=== PATIENT | female | born 1975 | race Asian ===

== ENCOUNTER → 2023-10-16 08:10 | Outpatient (REF) | payer BC, SELFPAY | LOC: RAD 08:10 | PROVIDERS: ATTENDING PHYSICIAN Surgery; FAMILY PHYSICIAN Student in an Organized Health Care Education/Training Program | DX: C50.412 Malignant neoplasm of upper-outer quadrant of left female breast (principal) | CPT/HCPCS: 71260; 74177; 78306; A9503; Q9967 ==

== ENCOUNTER → 2024-01-21 09:18 | Outpatient (REF) | payer BC, SELFPAY | LOC: RCS 09:18 | PROVIDERS: ATTENDING PHYSICIAN Nurse Practitioner Adult Health; FAMILY PHYSICIAN Student in an Organized Health Care Education/Training Program | DX: C50.912 Malignant neoplasm of unspecified site of left female breast (principal) | CPT/HCPCS: 93306 ==

== ENCOUNTER 2024-01-22 06:06 | Day surgery (SDC) | payer BC, SELFPAY ==
[2024-01-22 07:02] VITALS: BMI 28.2
[2024-01-22 07:13] VITALS: BMI 28.2
[2024-01-22 07:17] VITALS: BP 138/83
[2024-01-22] MEDS: NSS 1000 IV (07:18)
--- NOTE | 2024-01-22 07:40 | PTCARENOTE ---
OR team told to hang Normosol after NSS bolus infuses. Normosol sent to OR with patient.
[2024-01-22 08:34] VITALS: BP 119/52
[2024-01-22 08:45] VITALS: BP 112/79
[2024-01-22 09:00] VITALS: BP 93/59
[2024-01-22 09:10] VITALS: BP 122/88
== END 2024-01-22 09:30 | disposition home or self-care (01) ==
LOC: SDS 06:06
PROVIDERS: ATTENDING PHYSICIAN Surgery
DX: C50.912 Malignant neoplasm of unspecified site of left female breast (principal)
CPT/HCPCS: 36571; 71045; 76000; C1788

== ENCOUNTER → 2024-01-25 16:23 | Outpatient (REF) | payer BC, SELFPAY ==
[2024-01-25 15:55] LABS: % Basophils 0.5 % (0-2); % Eosinophils 1.1 % (0-6); % Immature Granulocytes 0.2 % (0-0.5); % Lymphocytes 26.3 % (20.5-51.1); % Neutrophils 64.9 % (42.2-75.2); Absolute Eosinophils 0.1 10^3/uL (0-0.7); Absolute Lymphocytes 1.7 10^3/uL (1.2-3.4); Absolute Monocytes 0.4 10^3/uL (0.1-0.6); Absolute Neutrophils 4.1 10^3/uL (1.4-6.5); Hematocrit 36.9 % (37.0-47.0); Hemoglobin 12.8 g/dL (12.0-16.0); Mean Corp Hgb Conc. 34.7 g/dL (33.0-37.0); Mean Corpuscular Hgb 32.6 pg (27.0-31.0); Mean Corpuscular Volume 93.9 fL (81.0-99.0); Mean Platelet Volume 9.2 fL (7.4-10.4); Nucleated Red Blood Cells % 0 %; Platelet Count 285 10^3/uL (130-400); Red Blood Cell Count 3.93 10^6/uL (4.20-5.40); Red Cell Dist. Width 11.9 % (11.5-14.5); White Blood Cell Count 6.3 10^3/uL (4.8-10.8)
[2024-01-25 16:07] LABS: ALT (SGPT) 15 U/L (0-35); AST (SGOT) 21 U/L (14-36); Albumin 4.2 g/dl (3.5-5.0); Alkaline Phosphatase 61 U/L (38-126); Blood Urea Nitrogen 14 mg/dl (7-17); Calcium 8.8 mg/dl (8.4-10.2); Carbon Dioxide 28 mmol/L (22-30); Chloride 101 mmol/L (98-107); Glucose 93 mg/dl (70-99); Potassium 3.8 mmol/L (3.5-5.1); Sodium 136 mmol/L (135-145); Total Bilirubin 0.4 mg/dl (0.2-1.3); Total Protein 7.2 g/dl (6.3-8.2); eGFR > 60.00
== END ==
LOC: OIDL 16:23
PROVIDERS: ATTENDING PHYSICIAN Internal Medicine Hematology & Oncology
DX: C50.912 Malignant neoplasm of unspecified site of left female breast (principal)
CPT/HCPCS: 80053; 85025

== ENCOUNTER → 2024-02-10 08:27 | Outpatient (REF) | payer BC, SELFPAY ==
[2024-02-10 08:49] LABS: % Basophils 0.4 % (0-2); % Eosinophils 1.8 % (0-6); % Immature Granulocytes 0.2 % (0-0.5); % Monocytes 9.9 % (1.7-9.3); % Neutrophils 64.7 % (42.2-75.2); Absolute Eosinophils 0.1 10^3/uL (0-0.7); Absolute Lymphocytes 1.3 10^3/uL (1.2-3.4); Absolute Monocytes 0.5 10^3/uL (0.1-0.6); Absolute Neutrophils 3.5 10^3/uL (1.4-6.5); Hematocrit 40.9 % (37.0-47.0); Mean Corp Hgb Conc. 34.2 g/dL (33.0-37.0); Mean Corpuscular Hgb 32.5 pg (27.0-31.0); Mean Corpuscular Volume 94.9 fL (81.0-99.0); Mean Platelet Volume 8.9 fL (7.4-10.4); Nucleated Red Blood Cells % 0 %; Platelet Count 225 10^3/uL (130-400); Red Blood Cell Count 4.31 10^6/uL (4.20-5.40); White Blood Cell Count 5.5 10^3/uL (4.8-10.8)
== END ==
LOC: REG 08:27
PROVIDERS: ATTENDING PHYSICIAN Surgery; FAMILY PHYSICIAN Student in an Organized Health Care Education/Training Program; REFERRING PHYSICIAN Internal Medicine Hematology & Oncology
DX: C50.412 Malignant neoplasm of upper-outer quadrant of left female breast (principal)
CPT/HCPCS: 36415; 85025

== ENCOUNTER 2024-03-08 06:13 | Day surgery (SDC) | payer BC, SELFPAY ==
[2024-02-23 08:20] VITALS: BMI 28.3
[2024-02-23 09:04] LABS: Hematocrit 39.2 % (37.0-47.0); Hemoglobin 13.8 g/dL (12.0-16.0); Mean Corp Hgb Conc. 35.2 g/dL (33.0-37.0); Mean Corpuscular Hgb 32.8 pg (27.0-31.0); Mean Corpuscular Volume 93.1 fL (81.0-99.0); Red Blood Cell Count 4.21 10^6/uL (4.20-5.40); White Blood Cell Count 6.2 10^3/uL (4.8-10.8)
[2024-02-23 09:27] LABS: Mean Platelet Volume 9.5 fL (7.4-10.4); Platelet Count 82 10^3/uL (130-400)
--- NOTE | 2024-03-01 13:28 | PTCARENOTE ---
Platelets 82 collected on 02/23/24; Delia at 's office was notified.
--- NOTE | 2024-03-04 13:56 | PTCARENOTE ---
Dr. Mcgowan made aware of plt 82, he would like surgeon made aware, which was done prior. see previous note.
[2024-03-08 12:16] VITALS: BMI 28.3
[2024-03-08] MEDS: NSS 1000 IV (12:25)
[2024-03-08 14:15] VITALS: BP 116/57
[2024-03-08 14:30] VITALS: BP 134/68
[2024-03-08 14:45] VITALS: BP 135/77
== END 2024-03-08 15:17 | disposition home or self-care (01) ==
LOC: SDS 06:13
PROVIDERS: ATTENDING PHYSICIAN Surgery; FAMILY PHYSICIAN Student in an Organized Health Care Education/Training Program
DX: C50.412 Malignant neoplasm of upper-outer quadrant of left female breast (principal); Z17.0 Estrogen receptor positive status [ER+]; Z79.899 Other long term (current) drug therapy; D64.9 Anemia, unspecified; D69.6 Thrombocytopenia, unspecified
CPT/HCPCS: 36561; 36415; 71045; 76000; 85027; C1788

== ENCOUNTER → 2024-05-17 13:41 | Outpatient (REF) | payer BC, SELFPAY | LOC: HWRAD 13:41 | PROVIDERS: ATTENDING PHYSICIAN Nurse Practitioner Adult Health; FAMILY PHYSICIAN Student in an Organized Health Care Education/Training Program | DX: C50.912 Malignant neoplasm of unspecified site of left female breast (principal) | CPT/HCPCS: 76536 ==

== ENCOUNTER → 2024-06-01 09:27 | Outpatient (REF) | payer BC, SELFPAY | LOC: RCS 09:27 | PROVIDERS: ATTENDING PHYSICIAN Internal Medicine Cardiovascular Disease; FAMILY PHYSICIAN Student in an Organized Health Care Education/Training Program | DX: Z85.3 Personal history of malignant neoplasm of breast (principal); T45.1X5D Adverse effect of antineoplastic and immunosuppressive drugs, subsequent encounter; Z90.13 Acquired absence of bilateral breasts and nipples | CPT/HCPCS: 93306; 93356 ==

== ENCOUNTER → 2024-06-07 10:29 | Outpatient (REF) | payer BC, SELFPAY | LOC: REG 10:29 | PROVIDERS: ATTENDING PHYSICIAN Nurse Practitioner Family; FAMILY PHYSICIAN Student in an Organized Health Care Education/Training Program | DX: C50.912 Malignant neoplasm of unspecified site of left female breast (principal); L73.9 Follicular disorder, unspecified; L30.9 Dermatitis, unspecified; R59.0 Localized enlarged lymph nodes; M25.551 Pain in right hip; M25.651 Stiffness of right hip, not elsewhere classified | CPT/HCPCS: 73502 ==

== ENCOUNTER → 2024-09-12 08:10 | Outpatient (REF) | payer BC, SELFPAY | LOC: RCS 08:10 | PROVIDERS: ATTENDING PHYSICIAN Internal Medicine Cardiovascular Disease; FAMILY PHYSICIAN Student in an Organized Health Care Education/Training Program | DX: Z85.3 Personal history of malignant neoplasm of breast (principal); T45.1X5D Adverse effect of antineoplastic and immunosuppressive drugs, subsequent encounter; Z90.13 Acquired absence of bilateral breasts and nipples | CPT/HCPCS: 93306; 93356 ==

== ENCOUNTER → 2025-01-03 16:29 | Outpatient (REF) | payer BC, SELFPAY ==
[2025-01-03 17:28] LABS: % Basophils 0.5 % (0-2); % Eosinophils 2.5 % (0-6); % Immature Granulocytes 0.2 % (0-0.5); % Monocytes 7.7 % (1.7-9.3); % Neutrophils 60.1 % (42.2-75.2); Absolute Eosinophils 0.2 10^3/uL (0-0.7); Absolute Lymphocytes 1.7 10^3/uL (1.2-3.4); Absolute Monocytes 0.5 10^3/uL (0.1-0.6); Absolute Neutrophils 3.6 10^3/uL (1.4-6.5); Hematocrit 39.3 % (37.0-47.0); Hemoglobin 13.4 g/dL (12.0-16.0); Mean Corp Hgb Conc. 34.1 g/dL (33.0-37.0); Mean Corpuscular Volume 93.8 fL (81.0-99.0); Nucleated Red Blood Cells % 0 %; Platelet Count 214 10^3/uL (130-400); Red Blood Cell Count 4.19 10^6/uL (4.20-5.40); Red Cell Dist. Width 12.6 % (11.5-14.5)
[2025-01-03 17:39] LABS: ALT (SGPT) 21 U/L (0-35); AST (SGOT) 28 U/L (14-36); Albumin 4.5 g/dl (3.5-5.0); Alkaline Phosphatase 71 U/L (38-126); Blood Urea Nitrogen 19 mg/dl (7-17); Calcium 9.2 mg/dl (8.4-10.2); Carbon Dioxide 29 mmol/L (22-30); Chloride 99 mmol/L (98-107); Glucose 96 mg/dl (70-99); Potassium 3.7 mmol/L (3.5-5.1); Sodium 137 mmol/L (135-145); Total Bilirubin 0.6 mg/dl (0.2-1.3); Total Protein 7.7 g/dl (6.3-8.2); eGFR > 60.00
== END ==
LOC: REG 16:29
PROVIDERS: ATTENDING PHYSICIAN Internal Medicine Hematology & Oncology; FAMILY PHYSICIAN Student in an Organized Health Care Education/Training Program
DX: C50.912 Malignant neoplasm of unspecified site of left female breast (principal); L73.9 Follicular disorder, unspecified; L30.9 Dermatitis, unspecified; R59.0 Localized enlarged lymph nodes; M25.551 Pain in right hip; M25.651 Stiffness of right hip, not elsewhere classified
CPT/HCPCS: 36415; 80053; 85025

== ENCOUNTER → 2025-01-09 07:21 | Outpatient (REF) | payer BC, SELFPAY | LOC: RCS 07:21 | PROVIDERS: ATTENDING PHYSICIAN Internal Medicine Cardiovascular Disease; FAMILY PHYSICIAN Student in an Organized Health Care Education/Training Program | DX: Z85.3 Personal history of malignant neoplasm of breast (principal); T45.1X5D Adverse effect of antineoplastic and immunosuppressive drugs, subsequent encounter | CPT/HCPCS: 93306; 93356 ==

== ENCOUNTER → 2025-02-17 08:22 | Outpatient (REF) | payer BC, SELFPAY | LOC: RAD 08:22 | PROVIDERS: ATTENDING PHYSICIAN Internal Medicine Hematology & Oncology; FAMILY PHYSICIAN Student in an Organized Health Care Education/Training Program | DX: C50.912 Malignant neoplasm of unspecified site of left female breast (principal); L73.9 Follicular disorder, unspecified; L30.9 Dermatitis, unspecified; R59.0 Localized enlarged lymph nodes; M25.551 Pain in right hip; M25.651 Stiffness of right hip, not elsewhere classified | CPT/HCPCS: 71270; 74178; 78306; A9503; Q9967 ==

== ENCOUNTER → 2025-07-12 11:46 | Outpatient (REF) | payer BC, SELFPAY | LOC: RAD 11:46 | PROVIDERS: ATTENDING PHYSICIAN Surgery Plastic and Reconstructive Surgery; FAMILY PHYSICIAN Student in an Organized Health Care Education/Training Program | DX: Z42.1 Encounter for breast reconstruction following mastectomy (principal) | CPT/HCPCS: 74174; Q9967 ==

== ENCOUNTER 2025-08-09 06:05 | Inpatient (IN) | payer BC, SELFPAY ==
[2025-07-31 09:07] LABS: Hematocrit 40.9 % (37.0-47.0); Hemoglobin 13.6 g/dL (12.0-16.0); Mean Corp Hgb Conc. 33.3 g/dL (33.0-37.0); Mean Corpuscular Volume 97.4 fL (81.0-99.0); Nucleated Red Blood Cells % 0 %; Platelet Count 218 10^3/uL (130-400); Red Cell Dist. Width 12.1 % (11.5-14.5)
[2025-07-31 09:47] LABS: ALT (SGPT) 21 U/L (0-35); AST (SGOT) 25 U/L (14-36); Albumin 4.2 g/dl (3.5-5.0); Alkaline Phosphatase 58 U/L (38-126); Blood Urea Nitrogen 12 mg/dl (7-17); Calcium 8.7 mg/dl (8.4-10.2); Carbon Dioxide 31 mmol/L (22-30); Chloride 104 mmol/L (98-107); Glucose 91 mg/dl (70-99); Potassium 3.7 mmol/L (3.5-5.1); Sodium 139 mmol/L (135-145); Total Protein 7.5 g/dl (6.3-8.2); eGFR > 60.00
[2025-07-31 14:21] VITALS: BMI 28.9
[2025-08-09] VITALS (17 sets, daily range): BP systolic 108–133; BP diastolic 70–90; BMI 28.9; BMI 29.2
[2025-08-09] MEDS: LOVENOX 40 MG SC (06:37)
[2025-08-09] MEDS: NORMOSOL-R/PLASMALYTE-A 1000 IV (06:44)
[2025-08-09] MEDS: EMEND 40 MG PO (06:49)
--- NOTE | 2025-08-09 07:15 | W.SUR.PREOP ---
Pre-Operative Surgical Note
-
I have examined this patient prior to the performance of the scheduled procedure.
The patient's condition is unchanged from the time of the current History and
Physical and the patient is able to undergo the scheduled procedure.
--- NOTE | 2025-08-09 18:07 | OR.RPT ---
Operative Report
Operative Report
Date of procedure: 08/09/25
Pre-Op DX: left breast ca S/P bilateral mastectomies and radiation
Post-Op DX: left breast ca S/P bilateral mastectomies and radiation. surgically-acquired bilateral ventral hernia repairs with mesh
Procedure: Removal of right portacath, bilateral mastotomies, right capsulectomies,, repair bilateral ventral
hernias with mesh
Surgeon: Wyatt
The patient is a 50 Y/O female who previously underwent bilateral mastectomies for the treatment of left breast carcinoma. She had bilateral expanders placed and also underwent adjuvant radiation therapy. She presents now for bilateral SILVERIO flaps
performed by Drs. Dowling and Ulises. I was present throughout the entire case to second assist and perform the
abdominal wall reconstruction as the Plastic Surgeons are not credentialed in General Surgery. I also removed the right portacath.
After general anesthesia was induced, the abdomen and chest were prepped and draped in the usual sterile fashion. An appropriate time out procedure was performed by all team members and Plastic surgery began harvesting the abdominal wall flaps. I
incised the skin of the right port insertion site which had hypertrophed by using a 15 blade. Dissestion was carried down to the port pocket and the catheter and port easily extruded and was discarded. The vascular tract was suture ligated with 4-0
monocryl. Hemostasis was verified and the port site was closed with 3-0 monocryl and a running subcuticular 4-0 monocryl.
I then performed bilateral mastotomies and removed the implants. Hemostatis was verified and moist packs were placed in the wound cavities.
After the tissue flaps were harvested, two abdominal wall defects in the anterior abdominal wall had been created both measuring 3 x 18 cm. Two portions of Phasix mesh
cut to the bilateral defect size of were fashioned and placed under the anterior rectus abdominis muscle sheath on each side. Then the anterior abdominal wall fascia was reapproximated with interupted figure of eight 0-PDS suture. Then an
0-Stratifix suture was used to oversew the repairs on both sides.
The remaining soft tissue and skin closure was performed as described in the Plastic Surgical dictation.
[id number]) [id number]
--- NOTE | 2025-08-09 18:11 | W.IMMPOSTOP ---
Surgical Immed Post Op Note
-
Primary Surgeon: ABBY Montgomery MD
Assisting Surgeon:
Pre-op Diagnosis: History of breast cancer, surgically acquired absence of bilateral breasts, history of radiation
Post-op Diagnosis: Same
Procedure Performed: Bilateral SILVERIO flap breast reconstruction, removal of bilateral tissue expanders
Anesthesia Type: General
Specimen / Cultures: Bilateral breast capsules, right internal mammary lymph node
Estimated Blood Loss: 150 cc
Complications: None
Operative Findings: As expected
--- NOTE | 2025-08-09 18:11 | OR.RPT ---
Operative Report
Operative Report
Date of Service: 08/09/25
Surgeon: Cheyenne Montgomery MD
Window Glazier/Cosurgeon: Miryam Dowling MD
Second Cruise Coordinator: Radha Schneider MD
Pre-op diagnosis:
1.� Personal history of breast cancer
2. Status post bilateral mastectomies
3. Radiation treatment of the left breast
Postop diagnosis: Same
Procedure:
1. Bilateral breast reconstruction with SILVERIO flaps
2.� Removal of bilateral tissue expanders without replacement
3. Bilateral capsulotomies and partial capsulectomy
4.� Right internal mammary lymph node biopsy
5. Application of disposable negative pressure incisional wound VAC
Anesthesia: General
EBL: 150 cc
Specimens:
1.� Right internal mammary lymph node
2.� Left breast capsule
3. Right breast capsule
Drains: 4 15 Burkin[place] Eleicer drains
Complications: none
Indications:
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
reconstruction. Given the anticipated bilateral SILVERIO flap breast reconstruction, I asked Dr. Dowling to be involved in her care given the complexity of the case and the need for a second surgeon to do this as safely and efficiently as possible.
Regarding bilateral free flap breast reconstruction,� she understood the nature of the surgery and all of the risk benefits alternatives were discussed at length.� Specific risks included flap failure or thrombosis, hematoma, seroma, poor wound
healing and compromise to the abdominal wall.� All questions were answered and consents were signed.
Operative findings:
The patient was identified in the preoperative area and consents were confirmed. The bilateral breasts were marked out as was the elliptical infraumbilical donor site. All questions were answered. She was brought to the operating room and placed
supine on the operative table.� General anesthesia was induced with an endotracheal tube. The arms were tucked bilaterally and a Cartagena catheter was placed.� Preoperative Lovenox and antibiotics were administered, and SCDs were placed.� The patient's
bilateral breasts and abdomen were prepped and draped in normal standard fashion using chlorhexidine prep.� A timeout for patient safety was performed.
To start the procedure, Dr. Dowling and I were in the abdomen to initiate the dissection of the abdominal flaps. Dr. Dowling dissected the right abdominal flap for left breast reconstruction and I worked on the left abdomen for right breast
reconstruction. Dr. Dowling assisted me with my portions of the case, and I assisted him with his portions of the case. Please see Dr. Schneider and Dr. Dowling's separately dictated operative notes. Once I started the intramuscular dissection of the left
abdominal flap, Dr. Dowling went up to the chest to prepare the vessels for microvascular transfer and at this time we began functioning as 2 separate teams.
In the abdomen, bilateral SILVERIO flaps were dissected out. This began with incising the proposed markings superiorly and dissection with a slight bevel upwards to the level of the fascia. Undermining of the supraumbilical flap continue in the midline
above the umbilicus towards the xiphoid. The patient was then flexed at the waist and the lower incision was confirmed to be tenable without undue tension. The patient was returned supine and the lower marking was incised with a 10 blade. The flaps
were then raised laterally to medially be sure to maintain the perforating vessels above the level of the fascia.� On the right side a 4 risk assessment analyst SILVERIO flap was dissected out.� Similarly on the left side a 4 risk assessment analyst SILVERIO flap had been dissected
out.�This involved a tedious intramuscular dissection to minimize the amount of muscle harvested with the flap. The pedicles were dissected down to level of the iliac vessels.
In the chest, the bilateral expanders were removed through IMF incisions. These were discarded. There was extensive capsulotomies performed bilaterally, and on the both sides a partial capsulectomy was also performed. This capsular tissue was sent
off for pathologic evaluation. The cartilaginous portion of the 4th rib was then resected bilaterally and the underlying internal mammary vessels were then meticulously and carefully dissected.�Internal mammary lymph nodes were encountered
bilaterally and this was excised and sent off for pathologic evaluation. Once the vessels were fully dissected circumferentially these were allowed to dilate up while attention was turned to the contralateral breast.� A pectoralis block was then
performed with marcaine and a 15 Burkinan Eliecer drain was placed through a stab incision the lateral IMF.� This was secured using a 2-0 Prolene suture.
The right hemiabdominal flap appears to have some signs of venous congestion while still insitu on the abdomen. Therefore an additional venous anastomosis was performed between a perforating vessel and the pedicle to allow for improved venous
drainage. This was done with a 1.5mm rectifying operator under the operating microscope.
The right hemiabdominal flap was then transferred up to the left chest first. The microvascular anastomosis was then performed.� This was done using a 2.5mm rectifying operator for the venous anastomosis.� The arterial anastomosis was performed with a handsewn
technique using 8-0 nylon suture.� Upon removal of the microvascular clamps there was excellent perfusion of the flap without any signs of venous or arterial insufficiency.� The flap was then temporarily inset with wagner and attention was turned
to the contralateral side.
The left hemiabdominal flap was then transferred up to the right chest.� The microvascular anastomosis was similarly performed.� On this side a 3.0mm rectifying operator was again utilized for the venous anastomosis.� The arterial anastomosis was performed in
the same fashion as the contralateral side.� Again there was excellent perfusion noted upon removal of the vascular clamps.
While the microvascular anastomoses were being performed, Dr. Schneider was performing the abdominal wall reconstruction.� Again please see her separately dictated operative report for details. Briefly, this involved reapproximation of the muscles
that was divided.� A small piece of Phasix mesh was inset as a underlay with primary fascial closure.� The fascia was closed with interrupted PDS sutures and PDS Stratafix suture. The patient also had an umbilical hernia that was corrected.�
A TAP block was performed bilaterally for postoperative analgesia.� Two 15 Burkinan Eliecer drains were placed in the abdomen.� These were similarly secured using 2-0 Prolene sutures.� The abdominal wall was then closed in a layered fashion.� 2-0 Vicryl
suture was utilized in the Cheryl's fascia.� The Insorb dermal stapler was then utilized for reapproximation of the deep dermis.� The superficial skin was then closed using 4-0 Monocryl suture.� The umbilicus was transposed.� This was inset using a
combination of 3-0 Monocryl in the deep dermis and 5-0 nylon suture superficially. A KRISHNA incisional wound VAC was applied superficially to maximize wound healing.
The SILVERIO flaps were then inset. The skin was then closed in a layered fashion using 3-0 and 4-0 Monocryl suture.� The SILVERIO flaps were de-epithelialized in all areas that would not be exposed prior to closure.
Doppler signals were identified on both skin islands and there was good punctate bleeding at time of deepithelialization. Signals were marked with 5-0 prolenes.
The wounds were then all dressed and the patient was extubated uneventfully.� All counts were correct at the the completion of the case.� The patient tolerated the procedure very well.�The patient was then transferred to the ICU for
postoperative�monitoring.
I was the primary surgeon for the right SILVERIO flap breast reconstruction and Dr. Dowling was the primary surgeon for the left side. I assisted him in all aspects of his surgery and he assisted me throughout my procedure and we functioned as cosurgeons
throughout the case so that we could operate in 2 separate surgical boyle at all times to maximize safety and efficiency.
Dr. Radha Schneider was our second library services assistant for this case.� Her assistance was critical and medically necessary to allow us to perform this in a safe and timely manner for this patient.� She assisted with retraction, execution, and closure of this
case. She also was responsible for the abdominal wall reconstruction as a primary surgeon.
--- NOTE | 2025-08-09 18:14 | OR.RPT ---
Operative Report
Operative Report
Date of Service: 08/09/25
Surgeon: Miryam Dowling MD
Newborn Photographer/Cosurgeon: Chyeenne Montgomery MD
Second Customs Import Specialist: Radha Schneider MD
Pre-op diagnosis:
1.� Personal history of breast cancer
2. Status post bilateral mastectomies
3. Radiation treatment of the left breast
Postop diagnosis: Same
Procedure:
1. Bilateral breast reconstruction with SILVERIO flaps
2.� Removal of bilateral tissue expanders without replacement
3. Bilateral capsulotomies and partial capsulectomy
4.� Right internal mammary lymph node biopsy
5. Application of disposable negative pressure incisional wound VAC
Anesthesia: General
EBL: 150 cc
Specimens:
1.� Right internal mammary lymph node
2.� Left breast capsule
3. Right breast capsule
Drains: 4 15 [place]ian Eliecer drains
Complications: none
Indications:
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
reconstruction. Given the anticipated bilateral SILVERIO flap breast reconstruction, I was asked to be involved in her care given the complexity of the case and the need for a second surgeon to do this as safely and efficiently as possible.
Regarding bilateral free flap breast reconstruction,� she understood the nature of the surgery and all of the risk benefits alternatives were discussed at length.� Specific risks included flap failure or thrombosis, hematoma, seroma, poor wound
healing and compromise to the abdominal wall.� All questions were answered and consents were signed.
Operative findings:
The patient was identified in the preoperative area and consents were confirmed. The bilateral breasts were marked out as was the elliptical infraumbilical donor site. All questions were answered. She was brought to the operating room and placed
supine on the operative table.� General anesthesia was induced with an endotracheal tube. The arms were tucked bilaterally and a Cartagena catheter was placed.� Preoperative Lovenox and antibiotics were administered, and SCDs were placed.� The patient's
bilateral breasts and abdomen were prepped and draped in normal standard fashion using chlorhexidine prep.� A timeout for patient safety was performed.
To start the procedure, Dr. Montgomery and I were in the abdomen to initiate the dissection of the abdominal flaps. I dissected the right abdominal flap for left breast reconstruction and Dr. Montgomery worked on the left abdomen for right breast
reconstruction. Dr. Montgomery assisted me with my portions of the case, and I assisted him with his portions of the case. Please see Dr. Schneider and Dr. Montgomery's separately dictated operative notes. Once I started the intramuscular dissection of his
flap, Dr. Montgomery went up to the chest to prepare the vessels for microvascular transfer and at this time we began functioning as 2 separate teams.
In the abdomen, bilateral SILVERIO flaps were dissected out. This began with incising the proposed markings superiorly and dissection with a slight bevel upwards to the level of the fascia. Undermining of the supraumbilical flap continue in the midline
above the umbilicus towards the xiphoid. The patient was then flexed at the waist and the lower incision was confirmed to be tenable without undue tension. The patient was returned supine and the lower marking was incised with a 10 blade. The flaps
were then raised laterally to medially be sure to maintain the perforating vessels above the level of the fascia.� On the right side a 4 tumbler drier operator SILVERIO flap was dissected out.� Similarly on the left side a 4 tumbler drier operator SILVERIO flap had been dissected
out.�This involved a tedious intramuscular dissection to minimize the amount of muscle harvested with the flap. The pedicles were dissected down to level of the iliac vessels.
In the chest, the bilateral expanders were removed through IMF incisions. These were discarded. There was extensive capsulotomies performed bilaterally, and on the both sides a partial capsulectomy was also performed. This capsular tissue was sent
off for pathologic evaluation. The cartilaginous portion of the 4th rib was then resected bilaterally and the underlying internal mammary vessels were then meticulously and carefully dissected.�Internal mammary lymph nodes were encountered
bilaterally and this was excised and sent off for pathologic evaluation. Once the vessels were fully dissected circumferentially these were allowed to dilate up while attention was turned to the contralateral breast.� A pectoralis block was then
performed with marcaine and a 15 [place]ian Eliecer drain was placed through a stab incision the lateral IMF.� This was secured using a 2-0 Prolene suture.
The right hemiabdominal flap appears to have some signs of venous congestion while still insitu on the abdomen. Therefore an additional venous anastomosis was performed between a perforating vessel and the pedicle to allow for improved venous
drainage. This was done with a 1.5mm fine arts packer under the operating microscope.
The right hemiabdominal flap was then transferred up to the left chest first. The microvascular anastomosis was then performed.� This was done using a 2.5mm fine arts packer for the venous anastomosis.� The arterial anastomosis was performed with a handsewn
technique using 8-0 nylon suture.� Upon removal of the microvascular clamps there was excellent perfusion of the flap without any signs of venous or arterial insufficiency.� The flap was then temporarily inset with wagner and attention was turned
to the contralateral side.
The left hemiabdominal flap was then transferred up to the right chest.� The microvascular anastomosis was similarly performed.� On this side a 3.0mm fine arts packer was again utilized for the venous anastomosis.� The arterial anastomosis was performed in
the same fashion as the contralateral side.� Again there was excellent perfusion noted upon removal of the vascular clamps.
While the microvascular anastomoses were being performed, Dr. Schneider was performing the abdominal wall reconstruction.� Again please see her separately dictated operative report for details. Briefly, this involved reapproximation of the muscles
that was divided.� A small piece of Phasix mesh was inset as a underlay with primary fascial closure.� The fascia was closed with interrupted PDS sutures and PDS Stratafix suture. The patient also had an umbilical hernia that was corrected.�
A TAP block was performed bilaterally for postoperative analgesia.� Two 15 [place]ian Eliecer drains were placed in the abdomen.� These were similarly secured using 2-0 Prolene sutures.� The abdominal wall was then closed in a layered fashion.� 2-0 Vicryl
suture was utilized in the Cheryl's fascia.� The Insorb dermal stapler was then utilized for reapproximation of the deep dermis.� The superficial skin was then closed using 4-0 Monocryl suture.� The umbilicus was transposed.� This was inset using a
combination of 3-0 Monocryl in the deep dermis and 5-0 nylon suture superficially. A KRISHNA incisional wound VAC was applied superficially to maximize wound healing.
The SILVERIO flaps were then inset. The skin was then closed in a layered fashion using 3-0 and 4-0 Monocryl suture.� The SILVERIO flaps were de-epithelialized in all areas that would not be exposed prior to closure.
Doppler signals were identified on both skin islands and there was good punctate bleeding at time of deepithelialization. Signals were marked with 5-0 prolenes.
The wounds were then all dressed and the patient was extubated uneventfully.� All counts were correct at the the completion of the case.� The patient tolerated the procedure very well.�The patient was then transferred to the ICU for
postoperative�monitoring.
I was the primary surgeon for the left SILVERIO flap breast reconstruction and Dr. Jhonny Montgomery was the primary surgeon for the right side. I assisted him in all aspects of his surgery and he assisted me throughout my procedure and we functioned as
cosurgeons throughout the case so that we could operate in 2 separate surgical boyle at all times to maximize safety and efficiency.
Dr. Radha Schneider was our second patient care assistant for this case.� Her assistance was critical and medically necessary to allow us to perform this in a safe and timely manner for this patient.� She assisted with retraction, execution, and closure of this
case. She also was responsible for the abdominal wall reconstruction as a primary surgeon.
[2025-08-09] MEDS: LR 1000 IV ×2 (19:17→23:54)
[2025-08-09] MEDS: TYLENOL 1000 MG PO ×2 (19:18→23:59)
[2025-08-09] MEDS: VALIUM 5 MG PO ×2 (19:18→22:12)
--- NOTE | 2025-08-09 19:56 | PTCARENOTE ---
on assessment pt drowsy but AAOx3, c/o 3/10 discomfort to ABD, + paddle pulses, minimal drainage, ABD KRISHNA C/D/I, SCHUMACHER, generalized weakness, SR on the monitor, clear liquid diet, galvan in place, call clemons in reach and at bedside
[2025-08-09] MEDS: NEURONTIN 300 MG PO (23:55)
[2025-08-09] MEDS: ANCEF 5 IV (23:55)
[2025-08-10] VITALS (24 sets, daily range): BP systolic 90–111; BP diastolic 58–77
--- NOTE | 2025-08-10 00:54 | PTCARENOTE ---
no changes from prior assessment, call clemons in reach
[2025-08-10 03:40] LABS: Hematocrit 32.3 % (37.0-47.0); Hemoglobin 10.9 g/dL (12.0-16.0); Mean Corp Hgb Conc. 33.7 g/dL (33.0-37.0); Mean Corpuscular Volume 95.0 fL (81.0-99.0); Nucleated Red Blood Cells % 0 %; Platelet Count 189 10^3/uL (130-400); Red Cell Dist. Width 12.3 % (11.5-14.5)
[2025-08-10 03:49] LABS: INR 1.01; PT 13.8 Sec (11.4-14.6)
[2025-08-10 03:50] LABS: APTT 26.6 Sec (23.4-35.0)
[2025-08-10 04:16] LABS: Blood Urea Nitrogen 10 mg/dl (7-17); Calcium 7.0 mg/dl (8.4-10.2); Carbon Dioxide 27 mmol/L (22-30); Chloride 108 mmol/L (98-107); Estimated Creatinine Clearance 97 ml/min; Glucose 118 mg/dl (70-99); Magnesium 2.5 mg/dl (1.6-2.3); Potassium 3.8 mmol/L (3.5-5.1); Sodium 136 mmol/L (135-145); eGFR > 60.00
[2025-08-10] MEDS: CALCIUM GLUCONATE 100 IV (05:06)
[2025-08-10] MEDS: TYLENOL 1000 MG PO ×3 (05:10→23:51)
--- NOTE | 2025-08-10 07:13 | CON.INTV ---
Consultation
Consultation Request
Date/Time Consultation Requested: 08/09/2025
Date/Time Consultation Performed: 08/10/2025
Medical History
-
Chief Complaint: Breast cancer
History of Present Illness:
Patient is a very pleasant 50-year-old female who was recently diagnosed with left-sided breast cancer in 09/2023. Patient was subsequently treated with bilateral mastectomy and placement of tissue expanders as well as left sided radiation therapy.
She has been on adjuvant therapy and was evaluated by plastic surgery as an outpatient for breast reconstruction with SILVERIO flaps. Postprocedure, she was admitted to ICU for close monitoring. Clothespin Machine Operator consultation was requested for further
input.
PMH: High-grade ductal carcinoma in situ, left breast, 2022.
Past surgical history. Bilateral mastectomies.
Social History: Father: , Kidney disease, diagnosed with Hypertension, Mother: alive, diagnosed with Hypertension, no family history breast, colon, prostate or pancreatic ca. No history of smoking.
Allergies / Home Medications
Allergies
Allergy/AdvReac Type Severity Reaction Status Date / Time
No Known Allergies Allergy Verified 08/09/25 19:34
Home Medications
�Medication �Instructions �Recorded �Confirmed �Last Taken �Type
timolol 0.5 % eye drops 1 drp BOTH EYES DAILY 11/10/23 08/09/25 08/09/25 05:00 History
melatonin 12 mg tablet 12 mg PO HS sleep 08/01/25 08/09/25 08/07/25 21:00 History
Review of Systems
-
Hematologic/Lymphatic: Other (Except for expected postop pain, all 14 systems reviewed and negative except as stated above in the history of present illness.)
Vitals / Labs / Diagnostic Testing
Vital Signs
Temp Pulse Resp BP Pulse Ox
98.8 F 82 17 104/71 97
08/10/25 05:32 08/10/25 07:00 08/10/25 07:00 08/10/25 07:00 08/10/25 07:00
Lab Data
08/10/25 03:13
Laboratory Results
08/10/25
03:13
PT 13.8
INR 1.01
APTT 26.6
Diagnostic Testing:
Physical Exam
-
HEENT: Normocephalic
Cardiovascular: S1/S2
Respiratory: Clear and Non-Labored Respirations
GI: Soft and Non Distended
Neurology: Awake and Alert
Skin: Warm
General: Comfortable
Assessment
-
Patient is a 50-year-old female with history of breast cancer, s/p bilateral mastectomies followed by radiation therapy to left breast, is s/p bilateral breast reconstruction with SILVERIO flaps, removal of tissue expanders, wound VAC placement by
Plastic surgery service, POD #1
Continue observation following procedure
Follow neurovascular checks per protocol
On prophylactic antibiotics, cefazolin, perioperative.
Follow BP monitoring and parameters as set by primary team
Cardiac history reviewed
Monitor on telemetry
Pain control per protocol. Currently on gabapentin, diazepam, scheduled Tylenol and as needed tramadol.
RASS goal 0
No prior history of pulmonary disease
CXR reviewed, suggestive of mild atelectasis.
No prior PFTs for review
Encouraged IS
Diet advancement per protocol
Aspiration precautions
GI prophylaxis: Protonix
Cr at baseline, follow UO
Critical I/Os
Void trials
Replete electrolytes as needed
No signs/symptoms suspicious for infectious etiology at this time
Follow temperatures/CBC
Hb and platelets postoperatively stable
DVT prophylaxis: On Lovenox
Other medical diagnoses:
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 S/p bilateral mastectomy, left sided radiation, adjuvant therapy with Kacyla. Patient follows up with oncology, radiation oncology and cardiology services outpatient.
Critical Care time [58] mins -- The patient is admitted for acute critical illness for the treatment of vital organ failure and/or prevention of further life-threatening conditions. Total care includes time spent in review of history, physical exam,
medications, hemodynamic/ventilator parameters, laboratory data, imaging and discussion with house staff, pharmacy, respiratory therapy, assistant account executive, and nursing
Data:
CXR 08/2025: 1. Streaky retrocardiac opacity, most suggestive of left lower lobe subsegmental atelectasis or early pneumonia.
2. Otherwise clear lungs.
ECHO 09/2024: Normal left ventricular size, wall thickness and LVEF 60-65 % . GLS endo peak avg. = -21.9 %. No significant valvular disease. Compared to the previous echo May 2024, there is no significant change.
[2025-08-10] MEDS: NEURONTIN 300 MG PO ×3 (07:29→23:51)
[2025-08-10] MEDS: ANCEF 5 IV ×2 (07:29→15:47)
[2025-08-10] MEDS: LOVENOX 40 MG SC (07:29)
[2025-08-10] MEDS: VALIUM 5 MG PO ×3 (07:30→23:51)
[2025-08-10] MEDS: COLACE 100 MG PO ×3 (07:30→23:51)
[2025-08-10] MEDS: TIMOPTIC 0.5% OPHTHALMIC SOLUTION 1 DROP BOTH EYES (07:30)
[2025-08-10] MEDS: SENOKOT 8.6 MG PO ×2 (07:30→23:50)
[2025-08-10] MEDS: LOVENOX SC (07:35)
--- NOTE | 2025-08-10 07:58 | PTCARENOTE ---
report received, assessments [per work list. handoff breast flap/pulse check completed. per off going RN, assessments unchanged. breasts soft, warm with + pulse checks. patient c/o mild abdominal discomfort. 12/19, scheduled medications administered.
monitor nsr, generalized anasarca, diminished breath sounds. IS initiated. galvan draining clear yellow urine. call clemons in reach.
--- NOTE | 2025-08-10 09:06 | W.PN.ANS.POP ---
Anesthesia Post Operative
- Anesthesia Post Op Note
Vital Signs Stable-See Nursing Note: Yes
Airway Patent: Yes
Adequate Pain Control: Yes
Change in Mental Status: No
Current Postoperative Nausea & Vomiting: No
Anesthesia Complications: No
General Anesthetic Recall: No
Unplanned Admission: No
Post Op Hydration Adequate: Yes
[2025-08-10] MEDS: ULTRAM 100 MG PO (09:25)
--- NOTE | 2025-08-10 10:49 | PTCARENOTE ---
Addendum entered by Светлана Buckley RN 08/10/25 11:00:
patient wearing abdominal binder when out of bed, using pillow for abdominal support. breath sounds diminished. IS encouraged
Original Note:
galvan removed, medicated with ultram for abdominal discomfort. paitent assisted to sit at side of bed. patient position per orders. when moved, large amount bloody drainage from right breast incision, close to sternum. returned to beach chair
position. slight pressure held, bleeding stopped, but noted with gentle palpation. Dr Shen notified by tiger text. patient assisted to chair in beach chair position, bleeding noted with movement but resolved with rest. updated, no new orders at
this time. abd applied with silicone tape over non surgical area. call clemons in reach
--- NOTE | 2025-08-10 11:54 | CM ---
Initial assessment completed with patient who lives with her in a 2 story home plus basement with B/B on 2nd and 1/2 bath on 1st, 1 step to enter. COAGULANT DIPPER patient was independent in ambulation and ADL's, drives. No DME. No in-home services. No
HC-POA. No VA benefits. No psychiatric hospitalizations. PCP is [facility], MARISOL Bailey. Pharmacy is [facility] on [address] in [place]. Discharge POC: RN for drain care day after discharge. Preference is [facility].
Referral forwarded.
--- NOTE | 2025-08-10 12:28 | PTCARENOTE ---
remains oob to chair. no further drainage from right breast incision. reassessed. declines urge to void
[2025-08-10 12:35] LABS: Blood Urea Nitrogen 12 mg/dl (7-17); Calcium 7.6 mg/dl (8.4-10.2); Carbon Dioxide 28 mmol/L (22-30); Chloride 108 mmol/L (98-107); Estimated Creatinine Clearance 98 ml/min; Glucose 106 mg/dl (70-99); Potassium 3.7 mmol/L (3.5-5.1); Sodium 137 mmol/L (135-145); eGFR > 60.00
--- NOTE | 2025-08-10 12:35 | W.PN.PLAS ---
Today's Communication
-
Flap protocol postop day 1
Progress Note
Subjective Data
Doing well
Denies shortness of breath
Objective Data
Vital Signs
Temp Pulse Resp BP Pulse Ox
97.5 F 89 23 103/63 97
08/10/25 12:13 08/10/25 11:00 08/10/25 11:00 08/10/25 10:00 08/10/25 11:00
Intake and Output
08/09/25 08/10/25 08/11/25
06:59 06:59 06:59
Intake Total 1560 / 1685 855 / 855
Output Total 2148 / 2248 795 / 795
Balance -588 / -563 60 / 60
Intake:
Oral fluids 60 / 60 480 / 480
IV fluids (Total) 1500 / 1625 375 / 375
Lr 1,000 ml @ 125 mls/hr IV . 1500 / 1625 375 / 375
Q8H LUIS Rx#:[id number]
Output:
Drain Output (Total) 148 / 148 95 / 95
Left Abdomen Tiburcio-Buitrago 10 / 10 10 / 10
Left Breast Tiburcio-Buitrago 30 / 30 30 / 30
Right Abdomen Tiburcio-Buitrago 78 / 78 20 / 20
Right Breast Tiburcio-Buitrago 30 / 30 35 / 35
Urine, Cartagena 1999 / 2100 700 / 700
Physical exam:
No acute distress
No increased work of breathing
Bilateral breast flaps with arterial signals present via Doppler
No evidence of venous congestion
Warm and well-perfused in appearance
TULIO drain serosanguineous
No undrained fluid collections
Abdominal incision intact
Lab Results
08/10/25 03:13
Assessment / Plan
Postop day 1 from SILVERIO flap breast reconstruction
Lovenox/SCDs
Regular diet
Cartagena out
Out of bed to chair
--- NOTE | 2025-08-10 15:01 | PTCARENOTE ---
Addendum entered by Светлана Buckley RN 08/10/25 16:13:
photo sent of right breast flap by encrypted tiger text per MD request. received and read. no new orders at this time
Original Note:
right breast flap with slight purple area around site of doppler signal suture. breast soft, good audible pulse. warm to touch, slower refill than prior assessment. [place] text to Dr Shen to update
--- NOTE | 2025-08-10 16:57 | PTCARENOTE ---
Assumed care of patient. Patient resting comfortably in bed, no complaints of pain at this time. Bilateral flap dopplers checked in tandem with off-going nurse. Dopplers easily obtained.
[2025-08-10] MEDS: TYLENOL PO (18:05)
--- NOTE | 2025-08-10 20:00 | PTCARENOTE ---
mounter, pt aaox3, denies pain. SR HR 80-90s. TULIO x 4 WNL, emptied & output documented. breast flap checks WNL per work list documentation. POC discussed, call clemons with pt.
[2025-08-11] VITALS (26 sets, daily range): BP systolic 86–114; BP diastolic 56–92; PULSE 80; BMI 29.6
[2025-08-11 04:36] LABS: Hematocrit 29.4 % (37.0-47.0); Hemoglobin 9.9 g/dL (12.0-16.0); Mean Corp Hgb Conc. 33.7 g/dL (33.0-37.0); Mean Corpuscular Volume 96.7 fL (81.0-99.0); Platelet Count 175 10^3/uL (130-400); Red Cell Dist. Width 12.7 % (11.5-14.5)
[2025-08-11 05:13] LABS: Blood Urea Nitrogen 12 mg/dl (7-17); Calcium 7.5 mg/dl (8.4-10.2); Carbon Dioxide 25 mmol/L (22-30); Chloride 111 mmol/L (98-107); Estimated Creatinine Clearance 113 ml/min; Glucose 94 mg/dl (70-99); Potassium 4.0 mmol/L (3.5-5.1); Sodium 138 mmol/L (135-145); eGFR > 60.00
[2025-08-11] MEDS: TYLENOL 1000 MG PO ×3 (06:22→17:07)
[2025-08-11] MEDS: ZOFRAN 4 MG IV (06:30)
--- NOTE | 2025-08-11 06:30 | PTCARENOTE ---
pt c/o slight nausea, prn zofran admin, otherwise assessment unchanged.
--- NOTE | 2025-08-11 07:30 | PTCARENOTE ---
Received patient Arousable from sleep, A&Ox4, on RA, NSR, BP WNL, GI/ continent. Did B/L Breast Flap check at hand off, surgical sites clean and dry, 2 TULIO drains on the each side, total 4 TULIO drains.
[2025-08-11] MEDS: LOVENOX 40 MG SC (08:27)
[2025-08-11] MEDS: NEURONTIN 300 MG PO ×2 (08:28→15:47)
[2025-08-11] MEDS: COLACE 100 MG PO ×3 (08:28→22:04)
[2025-08-11] MEDS: SENOKOT 8.6 MG PO ×2 (08:28→20:07)
[2025-08-11] MEDS: VALIUM 5 MG PO ×3 (08:28→22:04)
[2025-08-11] MEDS: TIMOPTIC 0.5% OPHTHALMIC SOLUTION 1 DROP BOTH EYES (08:29)
--- NOTE | 2025-08-11 09:36 | W.PN.PLAS ---
Addendum entered and electronically signed by Grady Montgomery MD 08/16/25 10:14:
Per CDI Request:
Anemia, due to acute blood loss and hemodilution
Original Note:
Today's Communication
-
Breast free flap protocol, continue every hour flap checks for 48 hours postop
Postop day 2
Anticipate discharge to home tomorrow morning with visiting nurse
Progress Note
Subjective Data
Doing well
Some productive phlegm, no shortness of breath
Objective Data
Vital Signs
Temp Pulse Resp BP Pulse Ox
97.9 F 81 19 111/67 95
08/11/25 07:52 08/11/25 09:04 08/11/25 09:04 08/11/25 09:04 08/11/25 09:04
Intake and Output
08/10/25 08/11/25 08/12/25
06:59 06:59 06:59
Intake Total 1560 / 1685 1335 / 1335
Output Total 2148 / 2248 1515 / 1515 719 / 719
Balance -588 / -563 -180 / -180 -719 / -719
Intake:
Oral fluids 60 / 60 960 / 960
IV fluids (Total) 1500 / 1625 375 / 375
Lr 1,000 ml @ 125 mls/hr IV . 1500 / 1625 375 / 375
Q8H LUIS Rx#:[id number]
Output:
Drain Output (Total) 148 / 148 265 / 265 44 / 44
Left Abdomen Tiburcio-Buitrago 35 / 35 2 / 2
Left Breast Tiburcio-Buitrago 30 / 30 65 / 65 12 / 12
Right Abdomen Tiburcio-Buitrago 78 / 78 95 / 95 20 / 20
Right Breast Tiburcio-Buitrago 30 / 30 70 / 70 10 / 10
Urine, Cartagena 1999 / 2099 700 / 700
Urine, Voided 550 / 550 675 / 675
Physical exam:
No acute distress
No increased work of breathing
Bilateral breast flaps with arterial signals present via Doppler
No evidence of venous congestion
Warm and well-perfused in appearance
TULIO drain serosanguineous
No undrained fluid collections
Abdominal incision intact
Lab Results
08/11/25 04:06
08/11/25 04:06
Assessment / Plan
Postop day 2 from SILVERIO flap breast reconstruction
Lovenox/SCDs
Regular diet
Voiding
Out of bed to ambulate
P.o. pain control
PT OT
Case management for visiting nurse
--- NOTE | 2025-08-11 09:38 | W.DCSUMMARY ---
Discharge Summary
Discharge Data
Date of Admission: 08/09/25
Date of Discharge: 08/12/25
-
Pending Results: No
Hospital Course
Patient was admitted following SILVERIO flap breast reconstruction. She was monitored in the ICU for every hour flap checks. Follow routine postoperative course. She was progressively able to ambulate, void and tolerate regular diet. Pain was
well-controlled on oral medications. She was discharged home with visiting nurse and close surgical follow-up.
Discharge Plan
-
Patient Disposition: Home (Routine Discharge)
Discharge Diagnosis/Procedures: s/p SILVERIO flap breast reconstruction
Condition: Good
Diet: Regular
Activity: No strenuous activity
Additional Activity: T Earl arms, no heavy lifting >10 lbs
Driving Restrictions: Not until seen by your Dr
Bathing Restrictions: OK to Shower
Other Services: VN
Wound Care: ABD pads as needed to incisions, abd binder as needed, strip and record drain output twice daily
Referrals:
Marya Bailey PA-C [Family Provider, [facility]]
Prescriptions:
New
gabapentin 300 mg Capsule
300 mg PO Q8 30 Days Qty: 90 3RF
enoxaparin 40 mg/0.4 mL Syringe
40 mg SC DAILY 7 Days Qty: 2.8 0RF
tramadol 50 mg Tablet
50 - 100 mg PO Q6HPRN PRN (Reason: severe pain) 14 Days Qty: 30 0RF
acetaminophen 500 mg capsule
1,000 mg PO QID PRN (Reason: Pain) Qty: 90 0RF
diazepam 5 mg Tablet
5 mg PO TID 14 Days Qty: 42 0RF
Continued
timolol 0.5 % Drops
1 drp BOTH EYES DAILY
melatonin 12 mg Tablet
12 mg PO HS
Discharge Orders:
Discharge Patient (As Directed); Ordered 08/12/25
Ordered By: Grady Montgomery
Discharge Date and Time
Print Language: SWEDISH
--- NOTE | 2025-08-11 12:00 | PTCARENOTE ---
Reassessed the patient, no changes from previous assessments.
--- NOTE | 2025-08-11 12:10 | PN.CDI ---
CDI
- -
CDI:
Physician Documentation Request
Admit Date: 08/09/25 06:05
Dear Doctor Ulises,
Please review the following and provide your response in the progress notes.
Clinical Indicators:
- 08/09 OR report indicates 150 ml EBL
- TULIO drain x 4 with sanguinous output
- 08/10 RN note 'when moved, large amount bloody drainage from right breast incision...pressure held, bleeding stopped'
- 'bleeding noted with movement but resolved with rest'
- 3L IVF
- Labs as follows:
Laboratory Tests
07/31/25 08/10/25 08/11/25
08:07 03:13 04:06
Hgb 13.6 10.9 L 9.9 L
Hct 40.9 32.3 L 29.4 L
Please clarify the appropriate diagnosis that supports the above lab abnormalities and additional evaluation, monitoring and/or treatment rendered:
Anemia, due to acute blood loss and hemodilution
Anemia due to hemodilution only
Clinically insignificant abnormal lab values
Other (please specify)
Use of terms such as suspected, likely, concern for, or probable (associated with a specific diagnosis that is being evaluated, monitored, or treated as if it exists) are acceptable and can be coded in the inpatient setting, when documented at the
time of discharge.
Thank you,
Froylan Kahn RN
CDI Specialist
Please use your independent medical judgment in providing your response.
--- NOTE | 2025-08-11 13:36 | W.PN.INTV ---
Today's Communication / Plan
Recommendations
- Continue incentive spirometry
- Anticipate discharge over next 24 hours
- Speed Belt Sander service will be available as needed
Assessment
-
Patient is a 50-year-old female with history of breast cancer, s/p bilateral mastectomies followed by radiation therapy to left breast, is s/p bilateral breast reconstruction with SILVERIO flaps, removal of tissue expanders, wound VAC placement by
Plastic surgery service, POD #2
Continue observation following procedure
Follow neurovascular checks per protocol
Completed prophylactic perioperative antibiotics, cefazolin.
Follow BP monitoring and parameters as set by primary team
Cardiac history reviewed
Monitor on telemetry
Pain control per protocol. Currently on gabapentin, diazepam, scheduled Tylenol and as needed tramadol.
RASS goal 0
No prior history of pulmonary disease
CXR reviewed, suggestive of mild atelectasis. Encouraged incentive spirometry. No fever, chills, cough or expectoration reported. Clinically not suggestive of pneumonia
No prior PFTs for review
Diet advancement per protocol
Aspiration precautions
GI prophylaxis: Protonix
Cr at baseline, follow UO
Critical I/Os
Void trials
Replete electrolytes as needed
No signs/symptoms suspicious for infectious etiology at this time
Follow temperatures/CBC
Hb and platelets postoperatively stable, mild drift noted.
DVT prophylaxis: On Lovenox
Other medical diagnoses:
-Stage IA ductal carcinoma of left breast (09/2023), HER2+/ER-/[place]-. S/p bilateral mastectomy, left sided radiation, adjuvant therapy with Kacyla. Patient follows up with oncology, radiation oncology and cardiology services outpatient.
Critical Care time [32] mins -- The patient is admitted for acute critical illness for the treatment of vital organ failure and/or prevention of further life-threatening conditions. Total care includes time2 spent in review of history, physical
exam, medications, hemodynamic/ventilator parameters, laboratory data, imaging and discussion with house staff, pharmacy, respiratory therapy, stroboroma operator, and nursing
Data:
CXR 08/2025: 1. Streaky retrocardiac opacity, most suggestive of left lower lobe subsegmental atelectasis or early pneumonia.
2. Otherwise clear lungs.
ECHO 09/2024: Normal left ventricular size, wall thickness and LVEF 60-65 % . GLS endo peak avg. = -21.9 %. No significant valvular disease. Compared to the previous echo May 2024, there is no significant change.
Subjective Dataa
Subjective Data
Date of Service:
Date of Service: August 11, 2025
Subjective:
Patient comfortably sitting in chair in no acute distress.
Review of Systems
Genitourinary: Other (All 14 systems reviewed and negative except as stated above in the history of present illness.)
Objective Data
Data Reviewed
Vital Signs / I&O / Oxygen:
Vital Signs
Temp Pulse Resp BP Pulse Ox
98.7 F 79 18 90/60 96
08/11/25 11:06 08/11/25 10:00 08/11/25 10:00 08/11/25 10:00 08/11/25 10:00
Intake and Output
08/10/25 08/11/25 08/12/25
06:59 06:59 06:59
Intake Total 1560 / 1685 1335 / 1335
Output Total 2148 / 2248 1515 / 1515 549 / 549
Balance -588 / -563 -180 / -180 -549 / -549
SaO2 96
Physical Exam
General: Comfortable
HEENT: Normocephalic
Cardiovascular: S1-S2
Respiratory: Clear and Non-Labored Respirations
GI: Soft and Non Distended
Neurology: Awake and Alert
Skin: Warm
Labs/Micro/Reports
Lab Data
08/11/25 04:06
08/11/25 04:06
--- NOTE | 2025-08-11 14:32 | VNURNOTE ---
Home Health Liaison met with patient and spouse at bedside to discuss [facility] nurse/therapy, visits, schedule and homebound status. Patient is agreeable and understands that visits at home will be 2-3 x per week to assess and teach medical
management. Patient is familiar with [facility] services, had services in the past. Patient is aware that [facility] will contact them for start of care in 1-2 days after discharge from . Provided contact number for [facility].
[facility] referral completed in [facility].
--- NOTE | 2025-08-11 15:10 | CM ---
Patient has been medically cleared for discharge to home with SARAH RN for drain care. Patient arranged for transport home.
--- NOTE | 2025-08-11 16:24 | PTCARENOTE ---
Reassessed the patient, no changes from previous assessments. Pending discharge tmr morning.
--- NOTE | 2025-08-11 19:52 | PTCARENOTE ---
Patient received OOB to chair. AAOx4 and able to make her needs known. Breast paddle assessment as documented on the flowsheet. No signs of discharge to right breast. Verbalizes discomfort that is tolerable at time of assessment. Plan of care for
the shift and pain management plan reviewed with the patient. Pt encouraged to notify staff when in pain and to not let it linger. NSR on the monitor. Diminished breath sounds to the bases. +BS. Four TULIO drains to bilateral breast and abdomen are
with serosanguineous output. Patient assisted back to bed and beach chair position with ambulation encouraged. Pt's spouse is at the bedside.
[2025-08-12] VITALS (8 sets, daily range): BP systolic 108–120; BP diastolic 62–87; BMI 29.9
--- NOTE | 2025-08-12 00:26 | PTCARENOTE ---
Patient reassessed. Remains AAOx4. Arouses to verbal commands. NSR on the monitor. Scheduled medications administered. No changes from the previous assessment.
--- NOTE | 2025-08-12 04:19 | PTCARENOTE ---
Patient reassessed. No changes from the previous assessment. Breast paddle assessment unchanged. Doppler pulses are present to bilateral breast. TULIO drains are with dry cleaning machine operator serosanguineous output.
[2025-08-12] MEDS: TYLENOL 1000 MG PO ×2 (06:00)
--- NOTE | 2025-08-12 07:30 | PTCARENOTE ---
Received patient A&Ox4, sitting in the recliner, beach chair position, on RA, NSR, BP WNL, GI/ continent. Q4H B/L Breast Flap check, Surgical sites clean and dry, total 4 TULIO drains, draining serosanguineous color. Pending discharge this morning.
[2025-08-12] MEDS: NEURONTIN 300 MG PO ×2 (08:01)
[2025-08-12] MEDS: VALIUM 5 MG PO (08:02)
[2025-08-12] MEDS: COLACE 100 MG PO (08:02)
[2025-08-12] MEDS: SENOKOT 8.6 MG PO (08:02)
[2025-08-12] MEDS: LOVENOX 40 MG SC (08:02)
[2025-08-12] MEDS: TIMOPTIC 0.5% OPHTHALMIC SOLUTION 1 DROP BOTH EYES (08:02)
--- NOTE | 2025-08-12 10:17 | W.PN.UPDATE ---
Update Note
Progress Note Update
The patient is doing well S/P bilateral SILVERIO flaps. Toook a shower today. Complaining of sputum production, but using incentive spirometer well.
D/C to home and will follow up with Dr. Montgomery next Thursday.
--- NOTE | 2025-08-12 11:10 | PTCARENOTE ---
Discharged patient home w/ , provided discharge teaching at bedside to both of them, answered all questions, took all belongings home.
== END 2025-08-12 11:19 | disposition home health service (06) | DRG 580 ==
LOC: ICU 06:05
PROVIDERS: Nurse Practitioner Family; ADMITTING PHYSICIAN Surgery Plastic and Reconstructive Surgery; CONSULT PHYSICIAN Internal Medicine; FAMILY PHYSICIAN Student in an Organized Health Care Education/Training Program; REFERRING PHYSICIAN Surgery
PROC: 0HRV077 Replacement of Bilateral Breast using Deep Inferior Epigastric Artery Perforator Flap, Open Approach (ICD-10-PCS; 2025-08-09)
PROC: 0WUF0JZ Supplement Abdominal Wall with Synthetic Substitute, Open Approach (ICD-10-PCS; 2025-08-09)
PROC: 05PY33Z Removal of Infusion Device from Upper Vein, Percutaneous Approach (ICD-10-PCS; 2025-08-09)
PROC: 0HPT0NZ Removal of Tissue Expander from Right Breast, Open Approach (ICD-10-PCS; 2025-08-09)
PROC: 0JPT0WZ Removal of Totally Implantable Vascular Access Device from Trunk Subcutaneous Tissue and Fascia, Open Approach (ICD-10-PCS; 2025-08-09)
PROC: 0HPU0NZ Removal of Tissue Expander from Left Breast, Open Approach (ICD-10-PCS; 2025-08-09)
PROC: 07B50ZX Excision of Right Axillary Lymphatic, Open Approach, Diagnostic (ICD-10-PCS; 2025-08-09)
DX: Z42.1 Encounter for breast reconstruction following mastectomy (principal); D62 Acute posthemorrhagic anemia; J98.11 Atelectasis; Z85.3 Personal history of malignant neoplasm of breast; Z90.13 Acquired absence of bilateral breasts and nipples; Z92.3 Personal history of irradiation; K42.9 Umbilical hernia without obstruction or gangrene; K43.9 Ventral hernia without obstruction or gangrene
CPT/HCPCS: 36415; 71045; 74018; 80048; 80053; 83735; 84100; 85025; 85027; 85610; 85730; 88304; 88305; 93005; 97163; A4648; C1729; C1781